=== PATIENT | female | born 1995 | race Caucasian/White ===

== ENCOUNTER → 2024-02-03 09:25 | Outpatient (REF) | payer MEDICAID, SELFPAY | LOC: HO.SL 09:25 | PROVIDERS: PCP Family Medicine; Visit Provider Nurse Practitioner Family | DX: Z13.89 Encounter for screening for other disorder (principal) | CPT/HCPCS: 95806 ==

== ENCOUNTER → 2024-02-03 19:00 | Outpatient (BNV) | payer MEDICAID, SELFPAY | PROVIDERS: PCP Family Medicine; Visit Provider Psychiatry & Neurology Neurology | DX: G47.33 Obstructive sleep apnea (adult) (pediatric) (principal) | CPT/HCPCS: 95806 ==

== ENCOUNTER 2024-02-08 17:38 | Outpatient (REF) | payer MEDICAID, SELFPAY ==
[2024-02-22 14:34] LABS: Mycoplasma genitalium RNA NOT DETECTED; Mycoplasma hominis PCR NOT DETECTED; Ureaplasma parvum PCR NOT DETECTED; Ureaplasma urealyticum PCR NOT DETECTED
== END 2024-02-08 17:39 | disposition home or self-care (01) ==
LOC: HO.HHCLNP 17:38
PROVIDERS: Visit Provider Advanced Practice Midwife
DX: Z01.419 Encounter for gynecological examination (general) (routine) without abnormal findings (principal); N89.8 Other specified noninflammatory disorders of vagina
CPT/HCPCS: 36415; 87563; 87798; 88175

== ENCOUNTER 2024-02-11 11:02 | Outpatient (REF) | payer MEDICAID, SELFPAY ==
[2024-02-11 16:58] LABS: Alanine Aminotransferase 13 U/L (0-31); Albumin Level 3.9 g/dL (3.5-5.0); Alkaline Phosphatase 69 U/L (39-117); Aspartate Amino Transferase 13 U/L (5-31); Bilirubin Direct 0.2 mg/dL (0.0-0.5); Bilirubin Total 0.5 mg/dL (0.0-1.0); Total Protein 7.4 g/dL (6.5-8.0)
[2024-02-11 17:15] LABS: TSH reflex Free T4 1.42 uIU/mL (0.32-4.0)
[2024-02-15 16:59] LABS: VITAMIN D (1,25 OH) D3 42 pg/mL; Vit D (1,25-Dihydroxy) Total 42 pg/mL (18-72); Vitamin D (1,25 OH) D2 <8 pg/mL
== END 2024-02-11 11:03 | disposition home or self-care (01) ==
LOC: HO.HHCL 11:02
PROVIDERS: Visit Provider Family Medicine
DX: Z13.89 Encounter for screening for other disorder (principal)
CPT/HCPCS: 36415; 80076; 82652; 84443

== ENCOUNTER 2024-03-09 16:54 | Outpatient (REF) | payer MEDICAID, SELFPAY ==
[2024-03-10 03:52] LABS: CT PCR NOT DETECTED (Not Detect.); NG PCR NOT DETECTED (Not Detect.)
[2024-03-10 09:17] LABS: Bacterial Vaginosis PCR NEGATIVE (Negative); Candida Group PCR DETECTED (Not Detect); Candida glab krusei PCR NOT DETECTED (Not Detect); Trichomonas vaginalis PCR NOT DETECTED (Not Detect)
== END 2024-03-09 16:55 | disposition home or self-care (01) ==
LOC: HO.LNP 16:54
PROVIDERS: Visit Provider Advanced Practice Midwife
DX: N89.8 Other specified noninflammatory disorders of vagina (principal)
CPT/HCPCS: 0352U; 87081; 87491; 87591

== ENCOUNTER 2024-05-03 16:42 | Outpatient (REF) | payer MEDICAID, SELFPAY ==
[2024-05-04 10:54] LABS: H Pylori Breath Test Negative (Negative)
== END 2024-05-03 16:43 | disposition home or self-care (01) ==
LOC: HO.LNP 16:42
PROVIDERS: Visit Provider Nurse Practitioner Family
DX: K21.9 Gastro-esophageal reflux disease without esophagitis (principal)
CPT/HCPCS: 83013

== ENCOUNTER 2024-09-05 18:30 | Outpatient (REF) | payer MEDICAID, SELFPAY ==
[2024-09-05 18:47] LABS: Appearance Urine Turbid; Color Urine Yellow; Glucose Urine UA Negative (Negative); Leukocyte Esterase Urine Negative (Negative); Nitrite Urine Negative (Negative); Specific Gravity - Urine 1.025 (1.005-1.025); Urine Blood Negative (Negative); Urine Ketones Trace mg/dL (Negative); Urine Protein Negative (Neg-Trace)
[2024-09-05 18:54] LABS: Bacteria Urine 1+ (None Seen); Hyaline Casts Urine 0-2 /LPF (0-2); RBC Urine 0-2 /HPF (0-2); WBC Urine 0-5 /HPF (0-5)
--- OUTSIDE RECORDS SUMMARY | 2024-09-05 19:09 | XMS_ITS | Clinical Summary ---
Author Organization [employer] Address [address] [facility] [address] [place] [address] Care Team Providers Care Plant Security Guard Name Role Phone Armida Bonds MD Primary Care Provider [phone] Marti Kovcas Unavailable Teresa You Unavailable Allergies No known active allergies Medications * This document contains information received from the source organization and may not represent a complete record from that organization. metFORMIN (Glucophage) 500 MG tabletIndications: Polycystic ovary syndrome Take 1 tablet (500 mg) by mouth Once per day. 90 tablet 3 4 Active cholecalciferol (Vitamin D-3) 25 MCG (1000 UT) tabletIndications: Vitamin D Deficiency Take 1 tablet (25 mcg) by mouth Once per day. 90 tablet 3 4 01/05/20 25 Active doxepin (SINEquan) 10 MG capsuleIndications :Moderate recurrent major depression (CMS/HCC) TAKE 2 CAPSULE BY MOUTH EVERY NIGHT AT BEDTIME 4 Active fluconazole (Diflucan) 150 MG tabletIndications: Chronic erythematous candidosis Take 1 tab po every other day x 3 3 tablet 5 Active DULoxetine (Cymbalta) [address] capsuleIndications :Moderate recurrent major depression (CMS/HCC) Take 20 mg by mouth 2 times daily. Do not crush or chew. Active omeprazole (PriLOSEC) [address] capsuleIndications :Gastroesophageal reflux disease, unspecified whether esophagitis present Take 20 mg by mouth before breakfast. Do not crush or chew. Active etonogestrel-eluti ng 68 mg contraceptive implantIndications :Family planning 1 each by Implant route 1 (one) time. Placed 02/08/2024, remove or replace by 02/07/2027- Active Active Problems Problem Noted Date Diagnosed Date Hirsutism 07/03/2024 Overview (07/03/2024): -discussed options including spironolactone but would caution given low BP, electrolysis and lazer hair removal Assessment & Plan (07/03/2024 10:18 AM EST): -discussed options including spironolactone but would caution given low BP, electrolysis and lazer hair removal BMI 38.0-38.9,adult 01/05/2024 Overview (01/05/2024): -exercise and healthy lifestyle modifications encouraged. -discussed options of weight loss medications Assessment & Plan (01/05/2024 9:25 AM EDT): -exercise and healthy lifestyle modifications encouraged. -discussed options of weight loss medications Family planning 01/05/2024 Overview (07/03/2024): -Nextplanon placed 02/08/2024, remove or replace by 02/07/2027-02/07/2029 -desires tubal ligation, referral placed 07/03/24 Assessment & Plan (07/03/2024 11:03 AM EST): -Nextplanon placed 02/08/2024, remove or replace by 02/07/2027-02/07/2029 -desires tubal ligation, referral placed 07/03/24 Assessment & Plan (01/05/2024 9:30 AM EDT): -referred to [employer] to have Nexplanon replaced 01/05/24 Preventative health care 09/23/2023 Overview (07/03/2024): -next physical exam due after 07/03/25 -eye care facilitated by [facility] -dental home encouraged -patrick care proxy filed 07/03/24 Assessment & Plan (07/03/2024 10:19 AM EST): -next physical exam due after 07/03/25 -eye care facilitated by [facility] -dental home encouraged -patrick care proxy filed 07/03/24 Irritable bowel syndrome 11/07/2021 Overview (05/04/2024): Pt reports frequent messy stools for years. She has seen GI most 10/29/2020. She reports stools are very soft and sticky. She was prescribed dicyclomine. -Celiac disease labs were normal on 05/2020. - trail cholestyramine 4 grams BID 2023 -Seen by Dr. Kovacs GI 05/04/24 H pylori test done patient will be treated empirically if positive. Rule out pancreatic insufficiency, inflammatory bowel disease. Patient reports epigastric pain will check her lipase, rule out celiac. Will check inflammatory markers as well as vitamin B12, folate and vitamin-D level as well as thyroid. Patient will be sent for upper GI with barium swallow to assess for possible reflux, hernia, esophagitis, gastritis. Patient will start taking omeprazole daily. Patient will be sent for upper endoscopy and possible colonoscopy depending on results. Patient denies any melena, hematochezia, unintentional weight loss or ribbon like stools. Patient reports occasional dyspepsia without dysphagia or odynophagia. Possible that her symptoms are related just to starting on metformin. Patient was encouraged to take fiber with probiotics. Increase fluid intake and activity to promote better bowel motility. Avoid certain food. Patient was educated on food that she should and should stay away from. Low FODMAP diet discussed with patient. List of food recommended as well as list of food to avoid given to patient.Patient is being treated for PCOS. Patient reports that she is following up in [facility]. Patient will return in 2-3 months to re-evaluate. She will call our office if she will have any other GI concerning symptoms or if her current symptoms will get worse. She is agreeable to plan of care and verbalizes understanding of instructions. She was given the opportunity to ask questions and all questions answered. Assessment & Plan (01/05/2024 9:26 AM EDT): Pt reports frequent messy stools. She has seen GI most recently 10/29/2020. She reports stools are very soft and sticky. She was prescribed dicyclomine. Celiac disease labs were normal on 05/2020. Trialling cholestyramine 4 grams BID, if that does not work she will try occasional Imodium. Referred to GI, 01/05/24 Polycystic ovary syndrome 11/07/2021 Overview (01/05/2024): Diagnoses 01/2021 based on amenorrhea, hirsutism and elevated testosterone. -US 06/07/2019 revealed multiple bilateral small ovarian peripheral follicles seen. continue Provera 10mg daily x q month for menses -continue metformin 500mg started 01/2021 -she declines spironolactone or laser hair removal for hirsutism at this time -testosterone elevated at 6.8 on 01/16/2021 -DHEA was normal at 292. -A1C was 5.2% and BGL was 103 on 08/03/23 -discussed options of weight loss medications Assessment & Plan (01/05/2024 9:23 AM EDT): Diagnoses 01/2021 based on amenorrhea, hirsutism and elevated testosterone. -US 06/07/2019 revealed multiple bilateral small ovarian peripheral follicles seen. continue Provera 10mg daily x q month for menses -continue metformin 500mg started 01/2021 -she declines spironolactone or laser hair removal for hirsutism at this time -testosterone elevated at 6.8 on 01/16/2021 -DHEA was normal at 292. -A1C was 5.2% and BGL was 103 on 08/03/23 -discussed options of weight loss medications Vaginal discharge 10/22/2021 Overview (07/03/2024): Chronic since at least 2017. Suspect normal varient in setting of psychoscomatic symptoms. See swab hx below. Pt has tried metrogel, boric acid, change in soap. 05/2019 + BBV by swab then multiple negative swabs 06/2019. 07/2019/ 11/2019, 12/2019, 02/2020 + yeast on slide (after antibiotics for dental infection ) treated with oral fluconazole. Multiple normal swabs after (see above) GC/chl neg 06/2019, 02/2020 HIV neg 07/3029, 02/2020 control method: Nextplanon Exam always demonstrates normal wet mount and normal vaginal discharge. She will try a probiotic for vagina. I have reinformaced this is normal varient and her vagina is heatlhy. Moderate recurrent major depression 10/22/2021 Overview (07/03/2024): Hx hospitalization and suicidial or homacidial ideation -Current exacerbation. -Pt followed by Teresa You at [facility] for psychiatry and therapist May[place]. Psychiatric prescriber recommending genesight testing to see which medication may help patient and needs PCP signature which was signed on 07/03/24. -has number for crisis Assessment & Plan (07/03/2024 10:17 AM EST): Hx hospitalization and suicidial or homacidial ideation -Current exacerbation. -Pt followed by Teresa You at [facility] for psychiatry and therapist Mayelin. Psychiatric prescriber recommending genesight testing to see which medication may help patient and needs PCP signature which was signed on 07/03/24. -has number for crisis Assessment & Plan (02/11/2024 9:24 AM EDT): Hx hospitalization. No ARI. -Current exacerbation. Referral made to [facility] 08/19/2023, pt is interested in outpatient therapy. -Restart [id number] 1/2 tab po daily 08/19/2023 does not feel any change with medication yet -Increase sertraline to 100mg 09/23/23 -continue Sertraline 100mg -still continues to see her therapist -Psychiatrist requested labs, ordered 02/11/24 Assessment & Plan (01/05/2024 9:27 AM EDT): Hx hospitalization. No ARI. -Current exacerbation. Referral made to [facility] 08/19/2023, pt is interested in outpatient therapy. -Restart [id number] 1/2 tab po daily 08/19/2023 does not feel any change with medication yet -Increase sertraline to 100mg 09/23/23 -continue Sertraline 100mg -still continues to see her therapist Assessment & Plan (09/23/2023 8:34 AM EDT): Hx hospitalization. No ARI. -Current exacerbation. Referral made to [facility] 08/19/2023, pt is interested in outpatient therapy. -Restart [id number] 1/2 tab po daily 08/19/2023 does not feel any change with medication yet -Increase sertraline to 100mg 09/23/23 Assessment & Plan (09/02/2023 12:10 PM EDT): During IBH Consult Leyla presenting with depressed mood, loss of interests/pleasure , changes in sleep difficulty falling asleep, change in appetite or weight reduce appetite, psychomotor retardation, trouble concentrating, thoughts of worthlessness or guilt, fatigue/loss of energy, inappropriate guilt , hopelessness, difficulty concentrating; for a period of 18+ mo, for all symptoms in the context of history of ongoing MH problems. Leyla has been struggling with depression sxs for a while now. Able to manage in the past using coping skills. Started medication prescribed by PCP two weeks ago (See PCP note) to treat sxs. PLAN: (check all that apply) New/Additional Services needed Off-site services for . [facility] information provided for same-day appointments and crisis situations. Referral will be placed for therapy; will follow-up with pt in-person on 09/08 at 1:30 PM to continue support & intervention. Assessment & Plan (08/19/2023 9:41 AM EDT): Hx hospitalization. No ARI. -Current exacerbation. Referral made to [facility] 08/19/2023, pt is interested in outpatient therapy -Restart sertraline 100mg 08/19/2023 Vitamin D2 deficiency 10/22/2021 Overview (01/05/2024): -continue Vitamin D 1000 UT Assessment & Plan (01/05/2024 9:13 AM EDT): -continue Vitamin D 1000 UT Resolved Problems Problem Noted Date Diagnosed Date Resolved Date Incontinence of feces 01/05/20242024 Overview (01/05/2024): Pt reports some fecal incontinence. -referred to GI 01/05/24 Assessment & Plan (01/05/2024 9:26 AM EDT): Pt reports some fecal incontinence. -referred to GI 01/05/24 Candidiasis 08/02/2023 06/06/2024 Assessment & Plan (08/02/2023 11:04 AM EDT): Flexural candidiasis under breasts -trial of clotrimazole -wash with moisturizing body wash, deep apryl dry, cornstarch powder -check A1c -call if symptoms worsen or do not improve Noninflammatory disorder of vagina 11/07/2021 02/10/2023 Depressive disorder 09/15/2010 02/11/20 23 Encounters Date Type Department Care Team Description 09/05/2024 8:40 AM EDT Office Visit [facility] [address] [place] [phone] Armida Bonds MD Dysuria (Primary Dx); Malodorous urine 09/05/2024 Travel 08/04/2024 Population Health Risk Score [facility] () Department [address] [place] [phone] Provider, Population Health Generic 07/03/2024 9:15 AM EST Office Visit [facility] [address] [place] [phone] Armida Bonds MD Moderate recurrent major depression (CMS/HCC) (Primary Dx); Chronic erythematous candidosis; Dietary counseling; Exercise counseling; Class 2 obesity due to excess calories with body mass index (BMI) of 38.0 to 38.9 in adult, unspecified whether serious comorbidity present; Gastroesophageal reflux disease, unspecified whether esophagitis present; Family planning; Encounter for immunization; Vitamin D2 deficiency; Polycystic ovary syndrome; Routine screening for STI (sexually transmitted infection); Hirsutism; Vaginal discharge; Preventative health care 07/03/2024 Telephone [facility] [address] [place] [phone] Armida Bonds MD 07/03/2024 Travel 06/30/[address] [phone] Pilar Azul MA chartprep 06/21/2024 Patient Outreach [facility] [address] [place] [address] Armida Bonds MD Pre-visit Planning (SDOH Screening negative and Tobacco screening negative) from Last 3 Months Immunizations Name Administration Dates Next Due DTP 1995,1995,1995 DTaP 1995 DTaP / Hep B / IPV 1995 DTaP, 5 pertussis antigens 03/31/2000,06/29/1996 HPV, Quadrivalent 03/19/2009,04/26/2008,02/26/20 07 Hep A, Adult 04/06/2014 Hep A, ped/adol, 2 dose 04/06/2014,11/14/2010 Hep B, Adolescent or Pediatric 1995,1994,1995 Hep B, adult 02/15/2019 Hib (PRP-T) 06/29/1996, 6,1995,03/30 IPV 03/31/2000 Influenza Injectable Quadriv alant Preservative Free IIV4 MDCK 02/16/2021 Influenza injectable quadriv alent IIV4 with preservative 03/08/2018,06/16/2017,06/26/2016,03/28 Influenza injectable quadriv alent preservative free 02/23/2020,02/15/2019 Influenza, IIV3, injectable 04/26/2008 Influenza, Split (incl. philippe fied surface antigen) 03/13/2013,04/11/2012,03/06/2010 Influenza, seasonal, injecta ble, preservative free 07/03/2024 MMR 03/20/1999,03/16/1996 Meningococcal MCV4P ACYW-135 03/28/2015,02/26/20 07 Novel [id number], all formulations 03/19/2009 OPV, Trivalent 1995,1995,1995 Pfizer Covid-19 Vaccine 12+ 07/03/2024 Pneumococcal Conjugate PCV 20 07/03/2024 Td (adult), 5 Lf tetanus tox oid, preservative free, adsorbed 06/26/2016 Tdap 06/16/2017,02/19/2006 Varicella 04/26/2008,09/25/1998 Family History Medical History Relation Name Comments Bone cancer Father's Brother Breast cancer Father's Sister Diabetes Paternal Grandmother Heart disease Paternal Grandmother Relation Name Status Comments Father's Brother Father's Sister Paternal Grandmother Social History Tobacco Use Types Packs/Day Years Used Date Smoking Tobacco: Every Day Cigarettes Smokeless Tobacco: Never Tobacco Cessation:Ready to Q uit: Not Asked; Counseling Given: Not Answered Alcohol Use Standard Drinks/Week Comments Never 0 (1 standard drink = 0.6 oz pur e alcohol) Depression Answer Date Recorded Patient Health Questionnaire-9 Score 16 07/03/2024 Patient Health Questionnaire-9 Score 16 07/03/2024 Last PHQ-9: Questionnaire Data Not on file 0 07/03/2024 Housing Stability Answer Date Recorded What is your housing situation today? I have mary johnson 02/11/[address] you li ve. Do you have problems with any of the following? None of the above 02/11/2024 Food Insecurity Answer Date Recorded Within the past 12 months, y ou worried that your food would run out before you got money to buy more: Never True 02/11/2024 Within the past 12 months,th e food you bought just didn't last and you didn't have enough money to get more: Never True Transportation Answer Date Recorded In the past 12 months, has l ack of transportation kept you from medical appts, meetings, work or from getting things needed for daily living? No 02/11/2024 Utilities Answer Date Recorded In the past 12 months, has t he electric, gas, oil or water company threatened to shut off services in your home? No 02/11/2024 Depression Answer Date Recorded Patient Health Questionnaire-2 Score 6 07/03/2024 Internet Access Answer Date Recorded Internet Access Q1 Yes 06/21/2024 Internet Access Q2 I do not want or need it 05/25 Comments No Sex and Gender Information Value Date Recorded Sex Assigned at Female 03/23/2022 10:15 AM EDT Legal Sex Female 10:15 AM EDT Gender Identity Female 03/23/2022 10:15 AM EDT Sexual Orientation Straight 03/23/2022 10 :15 AM EDT Last Filed Vital Signs Vital Sign Reading Time Taken Comments Blood Pressure 131/91 09/05/2024 8:47 AM EDT Pulse 121 09/05/2024 8:47 AM EDT Temperature 34.7 ??C (94.5 ??F) 09/05/2024 8:47 AM ED T Respiratory Rate 20 09/05/2024 8:47 AM EDT Oxygen Saturation 97% 07/03/2024 9:09 AM EST Inhaled Oxygen Concentration - - Weight 115 kg (252 lb 12.8 oz) 09/05/2024 8:47 A M EDT Height 167.6 cm (5' 6 ) 07/03/2024 9:09 AM EST Body Mass Index 40.8 07/03/2024 9:09 AM EST Plan of Treatment Upcoming Encounters Date Type Department Care Team (Late st Contact Info) Description 09/27/2024 2:00 PM EDT Office Visit [facility] [address] [place] [address] Armida Bonds MD [address] [place] [address] Health Maintenance Due Date Last Done Comments Depression Monitoring 12/31/2024 07/03/2024, 025 SDOH Screening 06/21/2025 06/21/2024 Alcohol/Substance Use Screening 07/03/2025 07/03/2024 Depression Screening 07/03/2025 07/03/2024, 07/03/19 25 Family Planning (PISQ) 07/03/2025 07/03/2024 Tobacco Screening 09/05/2025 09/05/2024 Pap Smear 02/07/2027 02/08/2024, 01/22, 01/16/2021, Additional history exists DTaP/Tdap/Td Vaccines (9 - Td or Tdap) 06/16/2027 06/16/2017, 06/26/2016, 02/19/2006, Additional history exists Lipid Panel 08/02/2028 08/03/2023, 2022 Zoster Vaccines (1 of 2) 2045 RSV Patients and Patients Aged 60 years or older (1 - 1-dose 75+ series) 2070 HIB Vaccines Completed 06/29/1996, 06/25, 1995, Additional history exists IPV Vaccines Completed 03/31/2000, 06/25, 1995, Additional history exists HPV Vaccines Completed 03/19/2009, 08/2007, 02/25/2007 Hepatitis A Vaccines Completed 04/06/2014, 04/06/2014, 11/14/2010 Meningococcal Vaccine Aged Out 03/28/2015, 007 No longer eligible based on patient's age to complete this topic Hepatitis B Vaccines Completed 02/15/2019, 1995, 1995, Additional history exists HIV Screening Completed 08/03/2023, 06/2021, 03/07/2020, Additional history exists Hepatitis C Screening Completed 08/03/2023, 022 COVID-19 Vaccine Completed 07/03/2024, , 10/16/2020 Influenza Vaccine Completed 07/03/2024, , 02/23/2020, Additional history exists Pneumococcal Vaccine: Pediatrics (0 to 5 Years) and At-Risk Patients (6 to 49) Years) Completed 07/03/2024 RSV under 20 months Aged Out No longe r eligible based on patient's age to complete this topic Rotavirus Vaccines Aged Out No longer eligible based on patient's age to complete this topic Procedures Procedure Name Priority Date/Time Associated Diagnosis Comments POCT URINALYSIS DIPSTICK Routine 09/05/2024 9:01 AM EDT Dysuria PAP SMEAR Routine 02/08/2024 12:00 AM EDT HEPATITIS C AB W/REFL TO HCV RNA, QN, PCR Routine 08/03/2023 12:48 PM EDT Encounter for hepatitis C screening test for low risk patient HIV 1/2 ANTIGEN/ANTIBODY, FOURTH GENERATION W/RFL Routine 08/03/2023 12:48 PM EDT Encounter for hepatitis C screening test for low risk patient LIPID PANEL, STANDARD Routine 08/03/2023 12:48 PM EDT Dyslipidemia from Last 3 Months or Most Recently Relevant to Health Maintenance Results * POCT urinalysis dipstick manually resulted (09/05/2024 9:01 AM EDT) Color, UA Light Yellow Clarity, UA Turbid Glucose, UA Negative Bilirubin, UA Negative Ketones, UA Negative Spec Grav, UA 1.025 Blood, UA Negative Negative, None Detected pH, UA 6.0 Urobilinogen, UA 0.2 Leukocytes, UA Negative Negative, Rare, Trace Nitrite, UA Negative Negative, None Detected Appearance, UA yellow QC Media Lot # [id number] Lot# Expiration Date Urine 09/05/2024 9:01 AM EDT Armida Bonds MD POINT OF CARE TEST ENTER/E DIT ORDERABLES Final Result * Pap Smear (02/08/2024 12:00 AM EDT) Swab us Armida Bonds MD LAB CYTOLOGY ORDERABLES Fi nal Result Performing Organization Address [facility]/State/ZIP Co de Phone Number [facility] [address] [place] [phone] * Hepatitis C Antibody with Reflex to HCV, RNA, Quantitative, Real-Time PCR (08/03/2023 12:48 PM EDT) Hepatitis C Antibody Nonreactive Nonreactive [facility] Comment:Antibodies to HCV no t detected; does not exclude early acuteHCV infection. Blood Venous blood specimen / Unknown 08/03/2023 12:48 PM EDT 08/03/2023 4:06 PM EDT us Armida Bonds MD LAB BLOOD ORDERABLES Final Result Performing Organization Address City/[facility]/ZIP Co de Phone Number [facility] [address] [place] [address] [phone] * HIV-1/2 Antigen and Antibodies, Fourth Generation, with Reflexes (08/03/2023 12:48 PM EDT) HIV AB/AG Nonreactive Nonreactive [facility] Comment:HIV-1 p24 Ag and/or HIV-1/HIV-2 Ab not detected.A test result that is nonreactive does not exclude thepossibility of exposure to or infection with HIV-1 and/orHIV-2. Nonreactive results in this assay for individualswith prior exposure to HIV-1 and/or HIV-2 may be due toantigen and antibody levels that are below the limit ofdetection of this assay.The [employer] HIV Ag/Ab Combo assay result andsupplemental assay results should be interpreted inconjunction with the patient's clinical presentation,history and other laboratory results. If the results areinconsistent with clinical evidence, additional testing issuggested to confirm the result. Blood Venous blood specimen / Unknown 08/03/2023 12:48 PM EDT 08/03/2023 4:06 PM EDT Armida Bonds MD LAB BLOOD ORDERABLES Final Result Performing Organization Address [facility]/ZIP Co de Phone Number [facility] [address] [place] [address] [phone] * (ABNORMAL) Lipid Panel, Standard (08/03/2023 12:48 PM EDT) Triglycerides 119 <150 mg/dL [facility] Comment:Desirable Triglyceri de: less than 150 mg/dLBorderline High Triglyceride 150-199 mg/dLHigh Triglyceride: 200-499 mg/dLVery High Triglyceride: greater than or equal to 5OO mg/dL Cholesterol 195 <200 mg/dL [facility] Comment:Desirable Cholestero l: less than 200 mg/dLBorderline High Cholesterol: 200-239 mg/dLHigh Cholesterol: greater than 239 mg/dL LDL Cholesterol Calculated 131(H) <100 mg/dL [facility] Comment:Desirable LDL: less than 100 mg/dLNear Optimal/Above Optimal LDL: 110- 129 mg/dLBorderline High LDL: 130-159 mg/dLHigh LDL: 160-189 mg/dLVery High LDL: greater than or equal to 190 mg/dL HDL Cholesterol 41 >40 mg/dL [facility] Comment:Desirable HDL: great er than 40 mg/dL Note: This HDL assay may give artificially low results in patients with liver disease. Blood Venous blood specimen / Unknown 08/03/2023 12:48 PM EDT 08/03/2023 4:06 PM EDT us Armida Bonds MD LAB BLOOD ORDERABLES Final Result [facility] [address] [place] [phone] [phone] from Last 3 Months or Most Recently Relevant to Health Maintenance Insurance [facility] C3 * Guarantor: Leyla Bee Account Type Relation to Patient Date of Phone Billing Address Personal/[place] [address] * Guarantor: Leyla Bee Account Type Relation to Patient Date of Phone Billing Address Personal/[place] [address] Advance Directives Documents on File Type Date Recorded 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 [facility] 07/03/24
--- OUTSIDE RECORDS SUMMARY | 2024-09-05 19:09 | XMS_ITS | Encounter Summary ---
Author Organization [facility] [facility] [employer] Address [address] [place] [address] 7t [place] [address] Care Team Providers Care Paint Tester Name Role Phone Armida Bonds MD Primary Care Provider [phone]- [phone] Mrati Kovacs Unavailable Teresa You Unavailable Reason for Visit * Reason Comments Med Refill Encounter Details Date Type Department Care Team (Late st Contact Info) Description 11/13/2023 Refill [facility] [address] [place], [place] [phone] Arabella Bashir FNP [address] [place], [place] [phone] Social History Tobacco Use Types Packs/Day Years Used Date Smoking Tobacco: Every Day Cigarettes Smokeless Tobacco: Never Alcohol Use Standard Drinks/Week Comments Never 0 (1 standard drink = 0.6 oz pur e alcohol) Depression Answer Date Recorded Patient Health Questionnaire-9 Score 18 09/20/2023 Patient Health Questionnaire-9 Score 18 09/20/2023 Last PHQ-9: Questionnaire Data Not on file 0 09/20/2023 Depression Answer Date Recorded Patient Health Questionnaire-2 Score 6 09/20/2023 Comments Unknown Sex and Gender Information Value Date Recorded Sex Assigned at Female 03/23/2022 10:15 AM EDT Legal Sex Female 10:15 AM EDT Gender Identity Female 03/23/2022 10:15 AM EDT Sexual Orientation Straight 03/23/2022 10 :15 AM EDT documented as of this encounter Plan of Treatment Upcoming Encounters Date Type Department Care Team (Late st Contact Info) Description 09/27/2024 2:00 PM EDT Office Visit [facility] [address] [place] [address] Armida Bonds MD [address] [place] [address] documented as of this encounter Visit Diagnoses Not on filedocumented in this encounter Additional Health Concerns Assessment Noted Time PHQ-9 Depression Total Score: 18 024 8:59 AM EDT documented as of this encounter Care Teams Paint Tester Relationship Specialty Start Date End Date Armida Bonds MD [address] [place] [address] PCP - General Family Medicine 05/05/17 Marti Kovacs [address] [place] [address] 3rd [place] [address] Gastroenterology 05/04/24 Teresa You [address] [place] [phone] Psychiatry 06/06/24 Mayelin Fournier [place], [place] 07/03/24 documented as of this encounter
--- OUTSIDE RECORDS SUMMARY | 2024-09-05 19:09 | XMS_ITS | Encounter Summary ---
Author Organization [facility] Address [address] [place] [phone] Phone Care Team Providers Care Buyer Tobacco Head Name Role Phone Consuelo Strong MD Primary Care Provider [phone] Encounter Details Date Type Department Care Team (Late st Contact Info) Description 07/31/2016 Documentation [facility] Family Medicine [address] [place], [place] [phone] Family Medicine, Physician [address] [place], [place] [address] Social History Tobacco Use Types Packs/Day Years Used Date Smoking Tobacco: Never Assessed Comments Unknown Sex and Gender Information Value Date Recorded Sex Assigned at Not on file Legal Sex Female 5:23 PM EDT Gender Identity Not on file Sexual Orientation Not on file documented as of this encounter Plan of Treatment Not on file documented as of this encounter Visit Diagnoses Not on filedocumented in this encounter Care Teams Buyer Tobacco Head Relationship Specialty Start Date End Date Consuelo Strong MD [address] [place] [address] [place] [address] PCP - General 01/01/17 07/22/22 documented as of this encounter
--- OUTSIDE RECORDS SUMMARY | 2024-09-05 19:09 | XMS_ITS | Encounter Summary ---
Author Organization [employer] Address [address] [place] [address] 7 [place] [address] Care Team Providers Care Seam Rubber Name Role Phone Armida Bonds MD Primary Care Provider [phone]- [phone] Marti Kovacs Unavailable Teresa You Unavailable Encounter Details Date Type Department Care Team (Late st Contact Info) Description 06/07/2022 Abstract [facility] MEDICINE [address] [place] [phone] Armida Bonds MD [address] [place] [address] [phone] Social History Tobacco Use Types Packs/Day Years [...] Description 09/27/2024 2:00 PM EDT Office Visit [facility] MEDICINE [address] [place] [address] [phone] Armida Bonds MD [address] [place] [address] [phone] documented as of this encounter Procedures Procedure Name Priority Date/Time Associated Diagnosis Comments PAP SMEAR Routine 01/16/2021 12:00 AM EDT documented in this encounter Results * Pap Smear (01/16/2021 12:00 AM EDT) Swab us Armida Bonds MD LAB CYTOLOGY ORDERABLES Fi nal Result [facility] [address] [place] [address] [phone] documented in this encounter Visit Diagnoses Not on filedocumented in this encounter Care Teams Seam Rubber Relationship Specialty Start Date End Date Armida Bonds MD [address] [place] [address] PCP - General Family Medicine 05/05/17 Marti Kovacs [address] [place] [address] 3rd [place] [address] Gastroenterology 05/04/24 Teresa You [address] [place] [phone] Psychiatry 06/06/24 [facility] [place] [place] 07/03/24 documented as of this encounter
--- OUTSIDE RECORDS SUMMARY | 2024-09-05 19:09 | XMS_ITS | Encounter Summary ---
Author Organization [employer] Address [address] [place] [address] 7 [place] [address] Care Team Providers Care Ammonia Print Operator Name Role Phone Armida Bonds MD Primary Care Provider + [phone] Marti Kovacs Unavailable Teresa You Unavailable Encounter Details Date Type Department Care Team (Late st Contact Info) Description 09/22/2022 Orders Only [facility] [address] [place] [address] Meron Blevins LPN Social History Tobacco Use Types Packs/Day Years [...] Encounters Date Type Department Care Team (Late Contact Info) Description 09/27/2024 2:00 PM EDT Office Visit [facility] [address] [place], [place] [phone] Armida Bonds MD [address] [place], [place] [phone] documented as of this encounter Visit Diagnoses Not on filedocumented in this encounter Care Teams Ammonia Print Operator Relationship Specialty Start Date End Date Armida Bonds MD [address] [place] [address] PCP - General Family Medicine 05/05/17 Marti Kovacs [address] [place] [address] Drive 3rd [place] [address] Gastroenterology 05/04/24 Teresa You [address] [place] [phone] Psychiatry 06/06/24 Mayelin Perferred [place], [place] 07/03/24 documented as of this encounter
--- OUTSIDE RECORDS SUMMARY | 2024-09-05 19:09 | XMS_ITS | Encounter Summary ---
Author Organization [facility] Address [address] [place] [phone] Phone Care Team Providers Care Smoke Tester Name Role Phone Consuelo Strong MD Primary Care Provider Encounter Details Date Type Department Care Team (Late st Contact Info) Description 01/07/2017 Conversion Encounter [facility] [address] [place] [address] Social History Tobacco Use Types Packs/Day Years Used Date Smoking Tobacco: Never Comments:Never smoker Comments Unknown Sex and Gender Information Value Date Recorded Sex Assigned at Not on file Legal Sex Female 5:23 PM EDT Gender Identity Not on file Sexual Orientation Not on file documented as of this encounter Plan of Treatment Not on file documented as of this encounter Visit Diagnoses Not on filedocumented in this encounter Care Teams Smoke Tester Relationship Specialty Start Date End Date Consuelo Strong MD [address] [place] [address] PCP - General 01/01/17 07/22/22 documented as of this encounter
--- OUTSIDE RECORDS SUMMARY | 2024-09-05 19:09 | XMS_ITS | Clinical Summary ---
Author Organization [facility] Address [address] [place] [phone] Phone Care Team Providers Care Tumbler Plater Name Role Phone Unavailable Primary Care Provider Unavailabl e Allergies No known active allergies Medications Etonogestrel (NEXPLANON) 68 MG implant NEXPLANON; 68 MG; 06/05/2016; Active 06/05/2016 Active polyethylene glycol powderIndicatio ns:Constipation by delayed colonic transit Take 8.5 g by mouth daily. Stir and dissolve powder into 4 to 8 ounces of beverage and then drink. 250 g 1 03/12/2017 Active Active Problems Problem Noted Date Diagnosed Date Depressive disorder 09/15/2010 Immunizations Immunization Administration Dates Next Due DTP 1995,1995,1995 DTaP 5 03/31/2000,06/29/1996 H1N1 03/19/2009 HPV, Quadrivalent 03/19/2009,04/26/2008,02/26/20 07 Hep A, ped/adol 04/06/2014,11/14/2010 Hep B, ped/adol 1995,1995,1995 Hib (PRP-T) 06/29/1996, 6,1995,03/30 IPV 03/31/2000 Influenza Split 03/13/2013,04/11/2012,03/06/2010 Influenza, injectable, quadrivalent 06/26/2016,1 05/28/2014 Influenza, injectable, quadr ivalent, preservative free 02/19/2017,02/24/2014 Influenza, injectable, trivalent 04/26/2008 MMR 03/20/1999,03/16/1996 Meningococcal Conj (Menactra) MCV4P 03/28/2015,1 OPV 1995,1995,1995 Td (adult) (Teniva), 5 Lf t etanus toxoid, PF, adsorbed 06/26/2016 Tdap 02/19/2006 Varicella 04/26/2008,09/25/1998 Family History Relation Name Status Comments Mother Alive Mother: Alive a nd well Other No family histo ry of *Heart Disease, No family history of Hyperlipidemia, No family history of *CVA/Stroke, Family history of *Sudden /[place] under 55 Sister Alive Sister: Alive a nd well Social History Tobacco Use Types Packs/Day Years Used Date Smoking Tobacco: Never Smokeless Tobacco: Never Comments:Never smoker Comments Unknown Sex and Gender Information Value Date Recorded Sex Assigned at Not on file Legal Sex Female 5:23 PM EDT Gender Identity Not on file Sexual Orientation Not on file Last Filed Vital Signs Vital Sign Reading Time Taken Comments Blood Pressure 115/77 03/12/2017 8:03 AM EDT Pulse 98 03/12/2017 8:03 AM EDT Temperature 36.6 ??C (97.8 ??F) 03/12/2017 8:03 AM ED T Respiratory Rate - - Oxygen Saturation - - Inhaled Oxygen Concentration - - Weight 94.3 kg (207 lb 12.8 oz) 03/12/2017 8:03 AM EDT Height 169 cm (5' 6.54 ) 03/12/2017 8:03 AM EDT Body Mass Index 33 03/12/2017 8:03 AM EDT Plan of Treatment Health Maintenance Due Date Last Done Comments Hepatitis A Vaccines (2 of 2 - 2-dose series) 10/04/2014 04/06/2014, 11/14/2010 Influenza Vaccines (#1) 2023 02/20/20 17, 06/26/2016, 03/28/2015, Additional history exists COVID-19 Vaccine ( - 2023- season) 2024 DTaP,Tdap,and Td Vaccines (8 - Td or Tdap) 06/26/2026 06/26/2016, 02/19/2006, 03/31/2000, Additional history exists Hepatitis B Vaccines Completed 1995, 1995, 1995 HIB Vaccines Completed 06/29/1996, 06/25, 1995, Additional history exists MMR Vaccines Completed 03/20/1999, 03/16/1996 IPV Vaccines Completed 03/31/2000, 06/25, 1995, Additional history exists Varicella Vaccines Completed 04/26/2008, 09/25/1998 HPV Vaccines Completed 03/19/2009, 08/2007, 02/25/2007 Meningococcal Vaccine Aged Out 03/28/2015, 007 No longer eligible based on patient's age to complete this topic Men B Vaccine Aged Out No longer elig ible based on patient's age to complete this topic Pneumococcal Vaccine Aged Out No long er eligible based on patient's age to complete this topic Procedures * Due to [facility] law, this organization might not be sharing sensitive test results. Procedure Name Priority Date/Time Associated Diagnosis Comments CHLAMYDIA AND GONORRHEA, AMPLIFIED Routine 08/12/2016 3:04 PM EDT from Last 3 Months or Most Recently Relevant to Health Maintenance Results * Due to [place] [employer] law, this organization might not be sharing sensitive test results. * Chlamydia and Gonorrhoea, Amplified (08/12/2016 3:04 PM EDT) Pathologist [facility] URINE CHLAMYDIA AMP PROBE NEGATIVE [facility] Comment: No Chlamydia Trachomatis RNA detected in this patient's sample (REFERENCE RANGE/NORMAL VALUE: NOT DETECTED) URINE GC AMP PROBE NEGATIVE [facility] Comment: No Neisseria Gonorrhoeae RNA detected in this patient's sample (REFERENCE RANGE/NORMAL VALUE: NOT DETECTED) NOTE: This test uses crop farm workers-mediated amplification method to detect rRNA from C.Trachomatis and N.Gonorrhoeae. A negative result does not preclude infection. In the case of a negative urine result, testing of an endocervical(female) or urethral(male) specimen is recommended if there is high clinical suspicion of infection. The performance characteristics of this test have not been evaluated in children. The Aptima Combo2 assay is not intended for the evaluation of suspected sexual abuse or for other medico-legal indications. The ordering provider should assess if the patient had consensual sex without risk of sexual abuse. Consult the [facility] if needed. Contact phone number . Therapeutic failure or success cannot be determined with the Aptima Combo2 assay since nucleic acid may persist following appropriate antimicrobial therapy. The Centers for Disease Control and Prevention (CDC) recommends confirmatory retesting using culture or a different nucleic acid amplification test when positive results occur, if indicated. Testing performed or reported by [facility], a Service of [facility], [facility] Gabriela Nelson, [place] [address] CLIA ??[id number] Ramiro Brown MD, PhD, Aeronautical Design Engineer 08/12/2016 3:04 PM EDT Narrative [facility] - 08/12/2016 3:04 PM EDT URINE CHLAMYDIA GC AMP PROBE us Consuelo Strong MD LAB MICROBIOLOGY - GENERAL ORD ERABLES Final Result [facility] [address] [place] [phone], [place] from Last 3 Months or Most Recently Relevant to Health Maintenance
--- OUTSIDE RECORDS SUMMARY | 2024-09-05 19:09 | XMS_ITS | Encounter Summary ---
Author Organization [employer] Address [address] [facility] 7t [place] [address] Care Team Providers Care Net Developer Consultant Name Role Phone Armida Bonds MD Primary Care Provider +1- [phone] Marti Kovacs Unavailable Teresa You Unavailable Encounter Details Date Type Department Care Team (Latest Contact Info) Description 09/05/2024 Travel Social History Tobacco Use Types Packs/Day Years [...] is your housing situation today? I have maryandie johnson 02/11/[address] you [...] Description 09/27/2024 2:00 PM EDT Office Visit [facility] [address] [place] [address] Armida Bonds MD [address] [place] [address] documented as of this encounter Visit Diagnoses Not on filedocumented in this encounter Additional Health Concerns Assessment Noted Time PHQ-9 Depression Total Score: 16 025 9:51 AM EST documented as of this encounter Care Teams Net Developer Consultant Relationship Specialty Start Date End Date Armida Bonds MD [address] [place] [address] PCP - General Family Medicine 05/05/17 Marti Kovacs [address] [place] [address] Drive 3rd [place] [address] Gastroenterology 05/04/24 Teresa You [address] [place] [address] [place] [phone] Psychiatry 06/06/24 Mayelin [place], [place] 07/03/24 documented as of this encounter
--- OUTSIDE RECORDS SUMMARY | 2024-09-05 19:09 | XMS_ITS | Encounter Summary ---
Author Organization [employer] Address [address] [facility] 7t [place] [address] Care Team Providers Care Rotor Winder Name Role Phone Armida Bonds MD Primary Care Provider +1- [phone] Marti Kovacs Unavailable Teresa You Unavailable Reason for Visit * Reason Comments UTI Encounter Details Date Type Department Care Team (Late st Contact Info) Description 09/05/2024 8:40 AM EDT Office Visit [facility] WALK-IN [address] [phone] Armida Bonds MD [address] [place], [place] [phone] Dysuria (Primary Dx); Malodorous urine Social History Tobacco Use Types Packs/Day Years [...] AM EDT documented as of this encounter Last Filed Vital Signs Vital Sign Reading Time Taken Comments Blood Pressure 131/91 09/05/2024 8:47 AM EDT Pulse 121 09/05/2024 8:47 AM EDT Temperature 34.7 ??C (94.5 ??F) 09/05/2024 8:47 AM ED T Respiratory Rate 20 09/05/2024 8:47 AM EDT Oxygen Saturation - - Inhaled Oxygen Concentration - - Weight 115 kg (252 lb 12.8 oz) 09/05/2024 8:47 A M EDT Height - - Body Mass Index 40.8 07/03/2024 9:09 AM EST documented in this encounter Progress Notes * Armida Bonds MD - 09/05/2024 8:40 AM EDT Subjective Leyla Bee is a 29 y.o. female here for evaluation of foul odor, stong urine, pain with starting to urinate , mild itching beginning 2 weeks ago. Other associated symptoms include: none. Fever has been absent. Symptoms which are not present include: abdominal pain, chills, hematuria, and vaginal discharge. UTI history: none. Antibiotic use within past three months: none Review of Systems Pertinent items are noted in HPI Objective BP (!) 131/91 (BP Location: Left arm, Patient Position: Sitting, BP Cuff Size: Adult) Pulse (!) 121 Temp 94.5 ??F (34.7 ??C) (Temporal) Resp 20 Wt 252 lb 12.8 oz (115 kg) BMI 40.80 kg/m?? Physical Exam Abdominal: General: Abdomen is flat. There is no distension. Palpations: Abdomen is soft. Lab review UA negative, see labs module Leyla was seen today for uti. Diagnoses and all orders for this visit: Dysuria (Primary) - Urinalysis, Complete, with Reflex to Culture; Future - Bacterial Vaginosis Panel - POCT urinalysis dipstick manually resulted Malodorous urine - Urinalysis, Complete, with Reflex to Culture; Future - Bacterial Vaginosis Panel Problem List Items Addressed This Visit None Visit Diagnoses Dysuria - Primary Relevant Orders Urinalysis, Complete, with Reflex to Culture Bacterial Vaginosis Panel POCT urinalysis dipstick manually resulted Malodorous urine Relevant Orders Urinalysis, Complete, with Reflex to Culture Bacterial Vaginosis Panel Differential includes irritation, vs candidiasis vs UTI. Urine dip normal. Will check BV swab for yeast and formal UA and culture. Discussed if BV positive, likely false positive given no BV symptomsand high rate of false positivity. -Report fever, chills, worsening symptoms or abdominal/flank pain -Advised to seek medical attention if no improvement or worsening of symptoms -ER precautions reviewed. documented in this encounter Plan of Treatment Upcoming Encounters Date Type Department Care Team (Late st Contact Info) Description 09/27/2024 2:00 PM EDT Office Visit [facility] MEDICINE [address] [place], [place] [phone] Armida Bonds MD [address] [place] [address] Scheduled Orders Name Type Priority Associated Diagnoses Orde r Schedule Urinalysis, Complete, with Reflex to Culture Lab Routine Dysuria Malodorous urine Expected: 09/05/2024 (Approximate), Expires: 09/05/2025 Bacterial Vaginosis Panel Microbiology Routine Dysuria Malodorous urine Ordered: 09/05/2024 documented as of this encounter Procedures Procedure Name Priority Date/Time Associated Diagnosis Comments POCT URINALYSIS DIPSTICK Routine 09/05/2024 9:01 AM EDT Dysuria documented in this encounter Results * POCT urinalysis dipstick manually resulted [...] CARE TEST ENTER/E DIT ORDERABLES Final Result documented in this encounter Visit Diagnoses Diagnosis Dysuria- Primary Malodorous urine documented in this encounter Additional Health Concerns Assessment Noted Time PHQ-9 Depression Total Score: 16 025 9:51 AM EST documented as of this encounter Care Teams Rotor Winder Relationship Specialty Start Date End Date Armida Bonds MD [address] [place] [phone] PCP - General Family Medicine 05/05/17 Marti Kovacs [address] [facility] 3rd [place] [address] Gastroenterology 05/04/24 Teresa You [address] [place] [phone] Psychiatry 06/06/24 Mayelin [place], [place] 07/03/24 documented as of this encounter
--- OUTSIDE RECORDS SUMMARY | 2024-09-05 19:09 | XMS_ITS | Encounter Summary ---
Author Organization [employer] [facility] Address [address] [place] [address] 7 [place] [address] Care Team Providers Care Knife Glazer Name Role Phone Armida Bonds MD Primary Care Provider +- [phone] Marti Kovacs Unavailable Teresa You Unavailable Encounter Details Date Type Department Care Team (Latest Contact Info) Description 2022 Abstract [facility] CONVERSIONS Dental, Provider, DDS Social History Tobacco Use Types Packs/Day Years [...] Description 09/27/2024 2:00 PM EDT Office Visit [facility] MEDICINE [address] [place] [address] Armida Bonds MD [address] [place] [phone] documented as of this encounter Visit Diagnoses Not on filedocumented in this encounter Care Teams Knife Glazer Relationship Specialty Start Date End Date Armida Bonds MD [address] [place] [address] [phone] PCP - General Family Medicine 05/05/17 Marti Kovacs [address] [facility] [address] 3rd [place] [address] Gastroenterology 05/04/24 Teresa You [address] [place] [phone] Psychiatry 06/06/24 Mayelin Fournier [place], [place] 07/03/24 documented as of this encounter
[2024-09-06 10:02] LABS: Bacterial Vaginosis PCR NEGATIVE (Negative); Candida Group PCR NOT DETECTED (Not Detect); Candida glab krusei PCR NOT DETECTED (Not Detect); Trichomonas vaginalis PCR NOT DETECTED (Not Detect)
== END 2024-09-05 18:31 | disposition home or self-care (01) ==
LOC: HO.LNP 18:30
PROVIDERS: Visit Provider Family Medicine
DX: R30.0 Dysuria (principal); R82.90 Unspecified abnormal findings in urine
CPT/HCPCS: 81001; 81515